=== PATIENT | male | born 1950 | race Caucasian/White ===

== ENCOUNTER 2024-10-21 16:13 | Inpatient (IN) | payer OTHER, MEDICARE ==
[~2024-10-21] VITALS: Ht 190.5 cm; Wt 122.2 kg
[2024-10-21 16:53] LABS: BASOPHILS ABSOLUTE AUTO 0.07 K/mm3 (0.00-0.23); BASOPHILS PERCENT AUTO 0 % (0-2); EOSINOPHILS ABSOLUTE AUTO 0.03 K/mm3 (0.00-0.68); EOSINOPHILS PERCENT AUTO 0 % (0-6); Hematocrit 42.4 % (37.0-53.0); Hemoglobin 14.8 g/dL (13.5-17.5); IMMATURE GRAN ABSOLUTE AUTO 0.24 K/mm3 (0.00-0.10); IMMATURE GRAN PERCENT AUTO 1 % (0-1); LYMPHOCYTES ABSOLUTE AUTO 0.69 K/mm3 (0.84-5.20); LYMPHOCYTES PERCENT AUTO 3 % (21-46); MONOCYTES ABSOLUTE AUTO 1.27 K/mm3 (0.16-1.47); MONOCYTES PERCENT AUTO 6 % (4-13); Mean Corpuscular HGB 32.2 pg (26.0-34.0); Mean Corpuscular HGB Conc 34.9 g/dL (31.5-36.5); Mean Corpuscular Volume 92 fL (80-100); Mean Platelet Volume 9.5 fL (9.1-12.4); NEUTROPHILS ABSOLUTE AUTO 20.58 K/mm3 (1.96-9.15); NEUTROPHILS PERCENT AUTO 90 % (41-73); Platelet Count 196 K/mm3 (150-400); RDW Coefficient Variation 12.8 % (11.7-14.2); RDW Standard Deviation 43.4 fL (35.1-46.3); White Blood Cell Count 22.88 K/mm3 (4.00-11.30)
[2024-10-21 17:06] LABS: Albumin, Blood 3.3 g/dL (3.4-5.0); Albumin/Globulin Ratio 0.9 (0.8-1.8); Bilirubin, Total 1.4 mg/dL (0.1-1.0); Bun/Creatinine Ratio 19.1 (12.0-20.0); Calcium, Blood 8.5 mg/dL (8.5-10.1); Creatinine, Blood 1.1 mg/dL (0.60-1.20); Globulin, Blood 3.6 g/dL (2.2-4.0); Potassium, Blood 3.4 mmol/L (3.5-5.5); Total Protein, Blood 6.9 g/dL (6.4-8.2)
[2024-10-21] MEDS ORDERED: Ketorolac Tromethamine 15mg Vial IV ONE (17:30)
[2024-10-21] MEDS ORDERED: CefTRIAXone Sodium 2,000 MG in NS 100 ML IV ONE (17:30)
[2024-10-21] MEDS ORDERED: Lactated Ringer's 1,000 ML IV ONE (17:30)
[2024-10-21 18:06] LABS: Source, Urine Voided
[2024-10-21 18:13] LABS: Appearance, Urine Clear (Clear); Bilirubin, Urine Neg (Neg); Blood, Urine 4+ (Neg); Glucose Qualitative, Urine 2+ (Neg); Ketones, Urine Neg (Neg); Leukocyte Esterase, Urine Neg (Neg); Nitrite, Urine Neg (Neg); Protein, Urine 3+ (Neg); Urobilinogen, Urine NORM (Normal)
[2024-10-21 18:18] LABS: Color, Urine Pale Yellow (P-Yellow)
[2024-10-21 18:23] LABS: Bacteria Rare /hpf; Red Blood Cells, Urine 0-2 /hpf (0-2); Squamous Epithelial Cells Rare /hpf (Few); White Blood Cells, Urine 0-2 /hpf (0-5)
[2024-10-21 18:32] LABS: Influenza A, PCR NEGATIVE (NEGATIVE); Influenza B, PCR NEGATIVE (NEGATIVE); Resp Syncytial Virus, PCR NEGATIVE (NEGATIVE); SARS-Cov-2 (COVID-19) PCR, MMC NEGATIVE (NEGATIVE)
[2024-10-21] MEDS ORDERED: Acetaminophen 325 MG TABLET PO PRN (20:25)
[2024-10-21] MEDS ORDERED: Magnesium Hydroxide Conc 10 ML UDC PO PRN (20:25)
[2024-10-21] MEDS ORDERED: Ondansetron 4 MG TAB PO PRN (20:25)
[2024-10-21] MEDS ORDERED: Ibuprofen 400 MG Tab PO PRN (20:25)
[2024-10-21] MEDS ORDERED: AMLO10 PO (20:28)
[2024-10-21] MEDS ORDERED: Potassium Chloride 20 MEQ TabCR PO ONE (21:00)
[2024-10-21] MEDS ORDERED: Lactobacil 2-S.Thermo-Bifido 1 1 Cap PO SCH (21:00)
[2024-10-21] MEDS ORDERED: Sennosides 8.6 MG Tab PO SCH (21:00)
--- NOTE | 2024-10-21 21:16 | NUR ---
TOOK REPORT FROM VISCERA WASHER @ [id number].
[2024-10-21 21:21] LABS: C-REACTIVE PROTEIN, EXT RANGE 2.12 mg/dL (0.000-0.300); Magnesium, Blood 1.7 mg/dL (1.6-2.4)
[2024-10-21 21:52] VITALS: BP 152/76
[2024-10-22 00:17] VITALS: BP 167/72
[2024-10-22 02:29] LABS: Adenovirus Not Detected (NOT DETECT); Bordetella pertussis Not Detected (NOT DETECT); Chlamydophila pneumoniae Not Detected (NOT DETECT); Coronavirus 229E Not Detected (NOT DETECT); Coronavirus HKU1 Not Detected (NOT DETECT); Coronavirus NL63 Not Detected (NOT DETECT); Coronavirus OC43 Not Detected (NOT DETECT); Human Metapneumovirus Not Detected (NOT DETECT); Human Rhinovirus/Enterovirus Not Detected (NOT DETECT); Influenza A/2009-H1 Not Detected (NOT DETECT); Influenza A/H1 Not Detected (NOT DETECT); Influenza A/H3 Not Detected (NOT DETECT); Influenza B Not Detected (NOT DETECT); Mycoplasma pneumoniae Not Detected (NOT DETECT); Parainfluenza Virus 1 Not Detected (NOT DETECT); Parainfluenza Virus 2 Not Detected (NOT DETECT); Parainfluenza Virus 3 Not Detected (NOT DETECT); Parainfluenza Virus 4 Not Detected (NOT DETECT); Respiratory Syncytial Virus Not Detected (NOT DETECT); SARS-Cov-2 (COVID-19), BioFire Not Detected (NOT DETECT)
[2024-10-22 04:47] VITALS: BP 163/83
[2024-10-22 04:57] LABS: BASOPHILS ABSOLUTE AUTO 0.06 K/mm3 (0.00-0.23); BASOPHILS PERCENT AUTO 0 % (0-2); EOSINOPHILS PERCENT AUTO 0 % (0-6); Hemoglobin 14.2 g/dL (13.5-17.5); IMMATURE GRAN ABSOLUTE AUTO 0.17 K/mm3 (0.00-0.10); IMMATURE GRAN PERCENT AUTO 1 % (0-1); LYMPHOCYTES ABSOLUTE AUTO 1.13 K/mm3 (0.84-5.20); LYMPHOCYTES PERCENT AUTO 4 % (21-46); MONOCYTES ABSOLUTE AUTO 1.36 K/mm3 (0.16-1.47); MONOCYTES PERCENT AUTO 5 % (4-13); Mean Corpuscular HGB 32.6 pg (26.0-34.0); Mean Corpuscular HGB Conc 35.5 g/dL (31.5-36.5); Mean Corpuscular Volume 92 fL (80-100); Mean Platelet Volume 9.5 fL (9.1-12.4); NEUTROPHILS ABSOLUTE AUTO 24.78 K/mm3 (1.96-9.15); NEUTROPHILS PERCENT AUTO 90 % (41-73); Platelet Count 189 K/mm3 (150-400); RDW Coefficient Variation 13.1 % (11.7-14.2); RDW Standard Deviation 43.6 fL (35.1-46.3); Red Blood Cell Count 4.36 M/mm3 (4.30-5.90)
--- NOTE | 2024-10-22 04:59 | NUR ---
SHIFT SUMMARY NOC PT A/O X 3. PLEASANT AND COOPERATIVE WITH CARE. VSS. ADMIT FROM ED WITH SIRS/AMS. RESPIRATORY PANEL NEGATIVE AND GI PANEL UNCOLLECTED. PT LACTIC WAS 2.9 AND AFTER ARRIVING ON UNIT TRENDING DOWN TO 2.3, REDRAW IN AM. PT ON TELE SINUS RHYTHM IN 80'S. PUREWICK IN PLACE FOR INCONTINENCE. POTASSIUM 3.4 WITH REPLACEMENT GIVEN IN ED. PT CURRENTLY RESTING WITH BED IN LOWEST POSITION, AND CALL LIGHT WITHIN REACH.
[2024-10-22] MEDS ORDERED: NS 250 ML IV PRN (05:15)
[2024-10-22 05:19] LABS: Albumin/Globulin Ratio 0.8 (0.8-1.8); Bilirubin, Total 1.4 mg/dL (0.1-1.0); Bun/Creatinine Ratio 17.7 (12.0-20.0); Calcium, Blood 8.3 mg/dL (8.5-10.1); Creatinine, Blood 0.9 mg/dL (0.60-1.20); Globulin, Blood 3.7 g/dL (2.2-4.0); Total Protein, Blood 6.7 g/dL (6.4-8.2)
--- NOTE | 2024-10-22 05:33 | NUR ---
AM LABS SHOWED INCREASED WBC 27.50 FROM 22.88. HOSPITALIST NOTIFIEND AND NO FURTHER INTERVENTIONS UNTIL GI PANEL COLLECTED. POTASSIUM 3.0 AND ORDER FOR KCL 40 MEQ ELIXER Q4H X 2 DOSES ORDERED. LACTIC ACID 1.2 WNL NOW.
[2024-10-22] MEDS ORDERED: Potassium Chloride 20 MEQ/15 ML UDC PO SCH (05:35)
[2024-10-22 07:31] VITALS: BP 153/79
[2024-10-22] MEDS ORDERED: Furosemide 10 MG/ML 4ML Vial IV SCH ×2 (09:00)
[2024-10-22] MEDS ORDERED: Enoxaparin 40 MG/0.4 ML SYR SC SCH (09:00)
[2024-10-22] MEDS ORDERED: AmLODIPine Besylate 5 MG Tab PO SCH (09:00)
[2024-10-22 09:33] LABS: Adenovirus F 40/41 Not Detected (NOT DETECT); Astrovirus Not Detected (NOT DETECT); Campylobacter Sp Not Detected (NOT DETECT); Cryptosporidium Not Detected (NOT DETECT); Cyclospora Cayetanensis Not Detected (NOT DETECT); E. Coli O157 Not Detected (NOT DETECT); Entamoeba Histolytica Not Detected (NOT DETECT); Enteroaggregative E. coli-EAEC Not Detected (NOT DETECT); Enteropathogenic E. coli-EPEC Not Detected (NOT DETECT); Enterotoxigenic E. coli-ETEC Not Detected (NOT DETECT); Giardia Lamblia Not Detected (NOT DETECT); Norovirus GI/GII Not Detected (NOT DETECT); Plesiomonas Shigelloides Not Detected (NOT DETECT); Rotavirus A Not Detected (NOT DETECT); Salmonella Sp Not Detected (NOT DETECT); Sapovirus Not Detected (NOT DETECT); Shiga Toxin-prod E. coli-STEC Not Detected (NOT DETECT); Shigella/Enteroin E. coli-EIEC Not Detected (NOT DETECT); Vibrio Cholerae Not Detected (NOT DETECT); Vibrio Sp Not Detected (NOT DETECT); Yersinia Enterocolitica Not Detected (NOT DETECT)
--- NOTE | 2024-10-22 14:35 | NUR ---
Pt. is awake in bed and welcomes my visit. Pt. is pleasant. Facilitated a life review and considered matters of katty and belief. Listen with empathy and a calming presence. Pt. displayed evidence of being engaged and aware. Pt. welcomed prayer. Prayed with Pt. Pt. vebralized gratitude for the spiritual care visit.
[2024-10-22 16:04] VITALS: BP 162/82
[2024-10-22] MEDS ORDERED: CefTRIAXone Sodium 1,000 MG in NS 100 ML IV SCH (18:00)
--- NOTE | 2024-10-22 19:21 | NUR ---
SHIFT SUMMARY PT A&OX4. PT ADMITTED DUE TO AMS. PT REPORTS NO PAIN. PT REPORTED SOME NAUSEA THIS AM BUT REPORTED NOT NEEDING MEDICATION AND TOLERATED MEALS. PT ON TELE, NO TELE REPORTS NOTED. MIKE AWARE OF INCREASE IN WBC. REPORTED TO MIKE PT MAY NEED NYSTATIN POWDER FOR GROIN, AWAITING NEW ORDER. REPORTED TO DR. MCKEON PT REPORTED BEING DIZZY. VSS. PT WORKED WITH PHYSICAL THERAPY TODAY. PT IS A ONE ASSIST WITH FWW. PT HAS PERWICK IN PLACE, AND ADEQUATELY SUCTIONING. PT IN BED, BED IN LOWEST POSITION, CALL LIGHT IN REACH. PT CALLS APPROPRIATE. PT REPORTS NO SOB. LET NIGHT RN KNOW PT WILL BE NPO AT MIDNIGHT FOR STRESS TEST. LAB REPORTED CH TROPONIN, NOTIFIED. PT HAD ECHO AND CT COMPLETED TODAY.
[2024-10-22 19:24] VITALS: BP 166/91
[2024-10-23 00:19] VITALS: BP 177/82
[2024-10-23 04:35] VITALS: BP 155/84
--- NOTE | 2024-10-23 05:05 | NUR ---
SHIFT SUMMARY: Pt is admitted for altered mental status and is a full code. Is alert and able to make needs known. ADLs have been SBA. denies pain or discomfort when asked. Telly reports sinus in the 80s with a 1 deg. Was NPO starting at midnight.
[2024-10-23 07:05] LABS: BASOPHILS ABSOLUTE AUTO 0.04 K/mm3 (0.00-0.23); BASOPHILS PERCENT AUTO 0 % (0-2); EOSINOPHILS ABSOLUTE AUTO 0.14 K/mm3 (0.00-0.68); EOSINOPHILS PERCENT AUTO 1 % (0-6); Hematocrit 42.6 % (37.0-53.0); Hemoglobin 14.6 g/dL (13.5-17.5); IMMATURE GRAN ABSOLUTE AUTO 0.04 K/mm3 (0.00-0.10); IMMATURE GRAN PERCENT AUTO 0 % (0-1); LYMPHOCYTES ABSOLUTE AUTO 1.77 K/mm3 (0.84-5.20); LYMPHOCYTES PERCENT AUTO 16 % (21-46); MONOCYTES ABSOLUTE AUTO 1.08 K/mm3 (0.16-1.47); MONOCYTES PERCENT AUTO 10 % (4-13); Mean Corpuscular HGB 32.1 pg (26.0-34.0); Mean Corpuscular HGB Conc 34.3 g/dL (31.5-36.5); Mean Corpuscular Volume 94 fL (80-100); Mean Platelet Volume 9.9 fL (9.1-12.4); NEUTROPHILS ABSOLUTE AUTO 8.22 K/mm3 (1.96-9.15); NEUTROPHILS PERCENT AUTO 73 % (41-73); Platelet Count 190 K/mm3 (150-400); RDW Coefficient Variation 12.9 % (11.7-14.2); RDW Standard Deviation 44.4 fL (35.1-46.3); Red Blood Cell Count 4.55 M/mm3 (4.30-5.90); White Blood Cell Count 11.29 K/mm3 (4.00-11.30)
[2024-10-23 07:21] VITALS: BP 165/95
[2024-10-23 07:54] LABS: Albumin, Blood 3.1 g/dL (3.4-5.0); Albumin/Globulin Ratio 0.8 (0.8-1.8); Bilirubin, Total 1.2 mg/dL (0.1-1.0); Bun/Creatinine Ratio 16.5 (12.0-20.0); Calcium, Blood 8.5 mg/dL (8.5-10.1); Creatinine, Blood 0.97 mg/dL (0.60-1.20); Globulin, Blood 4.1 g/dL (2.2-4.0); Magnesium, Blood 2.2 mg/dL (1.6-2.4); Phosphorus, Blood 1.7 mg/dL (2.5-4.9); Potassium, Blood 2.9 mmol/L (3.5-5.5); Total Protein, Blood 7.2 g/dL (6.4-8.2)
[2024-10-23] MEDS ORDERED: Aminophylline 250MG / 10ML 10 ML Vial ONE (08:24)
[2024-10-23] MEDS ORDERED: Regadenoson 0.4 MG/5 ML SYRINGE ONE (08:24)
[2024-10-23] MEDS ORDERED: Potassium Phosphate Dibasic 30 MM in Dextrose 5% 500 ML IV STA (09:06)
[2024-10-23] MEDS ORDERED: Potassium Chloride 20 MEQ TabCR PO SCH (09:10)
[2024-10-23 14:21] VITALS: BP 175/91
--- NOTE | 2024-10-23 17:20 | NUR ---
NO ACUTE CHANGES THIS SHIFT. PT IS ALERT AND ORIENTED X4, CALLS APPROPRIATELY. SECOND PART OF STRESS TEST TOMORROW AND PLAN FOR D/C PENDING RESULTS. SBA TO BATHROOM. ONE EPISODE OF DIZZINESS WITH AMBULATION.
[2024-10-23 19:27] VITALS: BP 166/84
[2024-10-24] VITALS (8 sets, daily range): BP systolic 136–171; BP diastolic 76–99
--- NOTE | 2024-10-24 04:28 | NUR ---
SHIFT SUMMARY: Pt is admitted for altered mental status and is a full code. Is alert and able to make needs known. ADLs have been SBA. denies pain or discomfort when asked. Telly reports sinus in the 70s with a bundle branch. Was NPO starting at midnight.
[2024-10-24 06:53] LABS: BASOPHILS ABSOLUTE AUTO 0.03 K/mm3 (0.00-0.23); BASOPHILS PERCENT AUTO 0 % (0-2); EOSINOPHILS ABSOLUTE AUTO 0.22 K/mm3 (0.00-0.68); EOSINOPHILS PERCENT AUTO 2 % (0-6); Hematocrit 44.5 % (37.0-53.0); Hemoglobin 15.6 g/dL (13.5-17.5); IMMATURE GRAN ABSOLUTE AUTO 0.04 K/mm3 (0.00-0.10); IMMATURE GRAN PERCENT AUTO 0 % (0-1); LYMPHOCYTES ABSOLUTE AUTO 1.93 K/mm3 (0.84-5.20); LYMPHOCYTES PERCENT AUTO 21 % (21-46); MONOCYTES ABSOLUTE AUTO 0.82 K/mm3 (0.16-1.47); MONOCYTES PERCENT AUTO 9 % (4-13); Mean Corpuscular HGB 32.4 pg (26.0-34.0); Mean Corpuscular HGB Conc 35.1 g/dL (31.5-36.5); Mean Corpuscular Volume 92 fL (80-100); Mean Platelet Volume 10.2 fL (9.1-12.4); NEUTROPHILS ABSOLUTE AUTO 5.99 K/mm3 (1.96-9.15); NEUTROPHILS PERCENT AUTO 66 % (41-73); Platelet Count 218 K/mm3 (150-400); RDW Coefficient Variation 12.7 % (11.7-14.2); RDW Standard Deviation 43.2 fL (35.1-46.3); Red Blood Cell Count 4.82 M/mm3 (4.30-5.90); White Blood Cell Count 9.03 K/mm3 (4.00-11.30)
[2024-10-24 07:18] LABS: Magnesium, Blood 2.2 mg/dL (1.6-2.4)
[2024-10-24 07:19] LABS: Albumin, Blood 3.2 g/dL (3.4-5.0); Albumin/Globulin Ratio 0.7 (0.8-1.8); Bilirubin, Total 1.3 mg/dL (0.1-1.0); Bun/Creatinine Ratio 18.3 (12.0-20.0); Creatinine, Blood 0.98 mg/dL (0.60-1.20); Globulin, Blood 4.3 g/dL (2.2-4.0); Phosphorus, Blood 2.2 mg/dL (2.5-4.9); Total Protein, Blood 7.5 g/dL (6.4-8.2)
[2024-10-24] MEDS ORDERED: Potassium Phosphate Dibasic 15 MM in Dextrose 5% 250 ML IV ONE ×2 (08:55→14:00)
[2024-10-24] MEDS ORDERED: Potassium Chloride 40 MEQ in NS 250 ML IV ONE (08:55)
[2024-10-24] MEDS ORDERED: Lisinopril 10 MG Tab PO SCH (09:00)
--- NOTE | 2024-10-24 17:42 | NUR ---
SHIFT SUMMARY: PATIENT A/OX4, PLEASANT AND COOPERATIVE c CARE. PATIENT DENIES CP/PRESSURE, SOB, N/V AND DIZZINESS. PATIENT ON TELE, SR HR IN THE 70'S BPM. PATIENT HAD HIS 2ND PART OF STRESS TEST DONE TODAY c RESULT AVAILABLE FOR REVIEW. PATIENT AM LAB RESULT OF PHOS 2.2 AND POTASSIUM 3.0. PATIENT RECEIVED OT DOSE IV POTASSIUM CHLORIDE AND POTASSIUM PHOSPHATE PER ORDER AND REPEAT LAB IN AM. PATIENT EDEMA TO BLE'S HAS SIGNIFICANTLY IMPROVED. PATIENT HAS GREAT APPETITE, CONTINENT OF BAB, AMBULATES TO BATHROOM INDEPENDENTLY. VITAL SIGNS REVIEWED. CALL LIGHT IN REACH.
[2024-10-25 05:06] VITALS: BP 140/72
[2024-10-25 06:55] LABS: BASOPHILS ABSOLUTE AUTO 0.06 K/mm3 (0.00-0.23); BASOPHILS PERCENT AUTO 1 % (0-2); EOSINOPHILS ABSOLUTE AUTO 0.33 K/mm3 (0.00-0.68); EOSINOPHILS PERCENT AUTO 4 % (0-6); Hematocrit 42.7 % (37.0-53.0); Hemoglobin 14.7 g/dL (13.5-17.5); IMMATURE GRAN ABSOLUTE AUTO 0.05 K/mm3 (0.00-0.10); IMMATURE GRAN PERCENT AUTO 1 % (0-1); LYMPHOCYTES PERCENT AUTO 29 % (21-46); MONOCYTES ABSOLUTE AUTO 0.91 K/mm3 (0.16-1.47); MONOCYTES PERCENT AUTO 10 % (4-13); Mean Corpuscular HGB Conc 34.4 g/dL (31.5-36.5); Mean Corpuscular Volume 93 fL (80-100); Mean Platelet Volume 9.8 fL (9.1-12.4); NEUTROPHILS ABSOLUTE AUTO 5.41 K/mm3 (1.96-9.15); NEUTROPHILS PERCENT AUTO 57 % (41-73); Platelet Count 246 K/mm3 (150-400); RDW Coefficient Variation 12.7 % (11.7-14.2); RDW Standard Deviation 43.6 fL (35.1-46.3); Red Blood Cell Count 4.59 M/mm3 (4.30-5.90); White Blood Cell Count 9.56 K/mm3 (4.00-11.30)
[2024-10-25 07:07] LABS: Magnesium, Blood 2.3 mg/dL (1.6-2.4)
[2024-10-25 07:08] LABS: Albumin, Blood 3.1 g/dL (3.4-5.0); Anion Gap 11 mmol/L (3-11); Blood Urea Nitrogen 28 mg/dL (8-24); Bun/Creatinine Ratio 22.4 (12.0-20.0); CO2, Blood 27 mmol/L (21-32); Calcium, Blood 8.2 mg/dL (8.5-10.1); Chloride, Blood 103 mmol/L (98-108); Creatinine, Blood 1.25 mg/dL (0.60-1.20); Glomerular Filtration Rate 61 (60-); Glucose, Blood 143 mg/dL (70-99); Phosphorus, Blood 2.8 mg/dL (2.5-4.9); Potassium, Blood 3.2 mmol/L (3.5-5.5); Sodium, Blood 138 mmol/L (136-145)
[2024-10-25 08:10] VITALS: BP 153/79
[2024-10-25] MEDS ORDERED: Potassium Chloride 10 Meq Tablet SA PO ONE (08:55)
[2024-10-25] MEDS ORDERED: Spironolactone 25 MG Tab PO SCH (09:00)
[2024-10-25] MEDS ORDERED: LISI20 PO (13:15)
[2024-10-25] MEDS ORDERED: ALDACTONE25 MG PO (13:15)
--- NOTE | 2024-10-25 13:45 | NUR ---
DISCHARGE PT DISCHARGED AT 1345. PT, AND SON EDUCATED ON NEW MEDICATIONS, APPOINTMENTS NEEDED, AND FOLLOW UP LABS. NO FURTHER QUESTIONS AT TIME OF EDUCATION. IVS REMOVED & INTACT. PT WHEELED OUT BY AIDE & DRIVEN HOME BY SON.
== END 2024-10-25 13:47 | disposition home health service (06) | DRG 91 ==
LOC: ER 16:13 → MEDS 16:14
PROVIDERS: Emergency Medicine; Family Medicine; Hospitalist; Student in an Organized Health Care Education/Training Program; ADMIT Student in an Organized Health Care Education/Training Program
DX: G92.8 Other toxic encephalopathy (principal); I21.4 Non-ST elevation (NSTEMI) myocardial infarction; E87.21 Acute metabolic acidosis; R65.10 Systemic inflammatory response syndrome (SIRS) of non-infectious origin without acute organ dysfunction; R74.01 Elevation of levels of liver transaminase levels; I10 Essential (primary) hypertension; E83.39 Other disorders of phosphorus metabolism; E87.6 Hypokalemia; E66.3 Overweight; Z79.899 Other long term (current) drug therapy; Z90.49 Acquired absence of other specified parts of digestive tract
CPT/HCPCS: 0202U; 0241U; 36415; 70450; 71046; 78452; 80053; 80069; 81001; 82947; 83605; 83735; 83880; 84100; 84443; 84484; 85025; 86140; 87040; 87507; 93005; 93010; 93017; 93306; 96365; 96372; 96375; 97110; 97116; 97161; 97165; 97530; 99285-25; A6590; A9270; A9500; G0378; J0280; J0696; J1650; J1885; J1940; J2785; J3480; J7050; J7060; J7120

== ENCOUNTER → 2024-10-26 | Outpatient (CLI) | payer MEDICARE ==
[~2024-10-26] MED LIST: ALDACTONE25 MG PO; AMLO10 PO; LISI20 PO
[2024-10-26 19:28] LABS: Bun/Creatinine Ratio 27.3 (12.0-20.0); Calcium, Blood 9.1 mg/dL (8.5-10.1); Creatinine, Blood 1.32 mg/dL (0.60-1.20); Potassium, Blood 3.6 mmol/L (3.5-5.5)
== END | disposition home or self-care (01) ==
LOC: LAB SHORT 18:50 → LAB 18:50
PROVIDERS: Nurse Practitioner Family
DX: E87.6 Hypokalemia (principal)
CPT/HCPCS: 80048

== ENCOUNTER 2025-02-28 10:01 | Inpatient (IN) | payer OTHER ==
[~2025-02-28] VITALS: Ht 188 cm; Wt 105.0 kg
[2025-02-28] VITALS (16 sets, daily range): BP systolic 101–144; BP diastolic 39–95
[~2025-02-28 10:01] MED LIST changes: +ACET500 PO; +ATOR40TA PO; +Aspir 8181 MG PO; +CLOP75 PO; +METO25ER PO
[2025-02-28] MEDS ORDERED: NS 1,000 ML IV ONE (10:18)
[2025-02-28 10:43] LABS: pH Blood Venous 7.03 (7.34-7.37)
[2025-02-28 10:49] LABS: BASOPHILS ABSOLUTE AUTO 0.04 K/mm3 (0.00-0.23); BASOPHILS PERCENT AUTO 0 % (0-2); EOSINOPHILS ABSOLUTE AUTO 0.14 K/mm3 (0.00-0.68); EOSINOPHILS PERCENT AUTO 1 % (0-6); Hematocrit 41.1 % (37.0-53.0); Hemoglobin 12.7 g/dL (13.5-17.5); IMMATURE GRAN ABSOLUTE AUTO 0.04 K/mm3 (0.00-0.10); IMMATURE GRAN PERCENT AUTO 0 % (0-1); LYMPHOCYTES ABSOLUTE AUTO 2.67 K/mm3 (0.84-5.20); LYMPHOCYTES PERCENT AUTO 20 % (21-46); MONOCYTES ABSOLUTE AUTO 0.92 K/mm3 (0.16-1.47); MONOCYTES PERCENT AUTO 7 % (4-13); Mean Corpuscular HGB Conc 30.9 g/dL (31.5-36.5); Mean Corpuscular Volume 102 fL (80-100); NEUTROPHILS ABSOLUTE AUTO 9.67 K/mm3 (1.96-9.15); NEUTROPHILS PERCENT AUTO 72 % (41-73); NRBC ABSOLUTE 0.00 K/mm3 (0.00-0.02); NRBC Auto 0.0 /100 WBC (0.0-0.2); Platelet Count 163 K/mm3 (150-400); RDW Coefficient Variation 14.2 % (11.7-14.2); RDW Standard Deviation 54.0 fL (35.1-46.3)
[2025-02-28] MEDS ORDERED: Insulin Regular 100 Unit/ML 1ML Dose IV ONE (11:00)
[2025-02-28] MEDS ORDERED: Sodium Bicarb 8.4% 1 MEQ/ML 50 ML Vial IV ONE ×3 (11:00→20:35)
[2025-02-28] MEDS ORDERED: Calcium Gluconate 10% 100 MG/ML INJ IV ONE (11:00)
[2025-02-28] MEDS ORDERED: Albuterol 2.5 MG/3 ML VIAL INH SCH (11:00)
[2025-02-28 11:10] LABS: Ethanol (Alcohol), Blood, Med <3 mg/dL
[2025-02-28 11:12] LABS: Calcium, Ionized (POC) 1.21 mmol/L (1.10-1.46); Chloride (POC) 126 mmol/L (98-108); Creatinine (POC) 8.8 mg/dL (0.8-1.3); Glucose (ISTAT POC) 106 mg/dL (70-99); Hematocrit (POC) 37.0 % (41.0-53.0); Hemoglobin (POC) 12.6 g/dL (13.5-17.5); Potassium (POC) 8.4 mmol/L (3.5-5.5); Sodium (POC) 140 mmol/L (135-148); Total CO2 (POC) 8 mmol/L (21-32)
[2025-02-28 11:15] LABS: Alanine Aminotransfer (ALT/SGP 57 U/L (12-78); Albumin, Blood 3.4 g/dL (3.4-5.0); Albumin/Globulin Ratio 0.8 (0.8-1.8); Anion Gap 19 mmol/L (3-11); Aspartate Aminotrans (AST/SGOT 21 U/L (12-37); Bilirubin, Total 0.4 mg/dL (0.1-1.0); Blood Urea Nitrogen 181 mg/dL (8-24); CO2, Blood 5 mmol/L (21-32); Calcium, Blood 9.0 mg/dL (8.5-10.1); Chloride, Blood 122 mmol/L (98-108); Creatinine, Blood 8.43 mg/dL (0.60-1.20); Globulin, Blood 4.0 g/dL (2.2-4.0); Glucose, Blood 105 mg/dL (70-99); Potassium, Blood 8.5 mmol/L (3.5-5.5); Sodium, Blood 137 mmol/L (136-145); Total Protein, Blood 7.4 g/dL (6.4-8.2)
[2025-02-28 11:23] LABS: Influenza A, PCR NEGATIVE (NEGATIVE); Influenza B, PCR NEGATIVE (NEGATIVE); Resp Syncytial Virus, PCR NEGATIVE (NEGATIVE); SARS-Cov-2 (COVID-19) PCR, MMC NEGATIVE (NEGATIVE)
[2025-02-28] MEDS ORDERED: CALCIUM GLUC IN NACL, ISO-OSM 50 ML IV ONE (11:25)
[2025-02-28] MEDS ORDERED: Ondansetron HCl 2 MG / ML 2ML Vial IV PRN (11:50)
[2025-02-28] MEDS ORDERED: Darbepoetin (Pharmacy Consult) SC SCH (11:55)
[2025-02-28 12:05] LABS: Source, Urine Clean Catch
[2025-02-28] MEDS ORDERED: Sodium Bicarb 8.4% Inj 150 MEQ in Dextrose 5% 1,000 ML IV SCH (12:05)
[2025-02-28 12:08] LABS: Bilirubin, Urine Neg (Neg); Color, Urine Yellow (P-Yellow); Glucose Qualitative, Urine Neg (Neg); Ketones, Urine Neg (Neg); Leukocyte Esterase, Urine Neg (Neg); Protein, Urine 2+ (Neg); Specific Gravity, Urine 1.025 (1.003-1.022); Urobilinogen, Urine NORM (Normal)
[2025-02-28 12:14] LABS: White Blood Cells, Urine 0-2 /hpf (0-5)
[2025-02-28] MEDS ORDERED: SPIRONOLACTONE25 MG PO (13:58)
[2025-02-28] MEDS ORDERED: LISI20 PO (13:58)
[2025-02-28] MEDS ORDERED: ATOR10 PO (14:00)
[2025-02-28] MEDS ORDERED: Heparin Sodium,Porcine 5,000 UNIT/0.5 ML SDV SC SCH (14:00)
[2025-02-28 14:34] LABS: Anion Gap 17.0 mmol/L (3-11); Blood Urea Nitrogen 177.0 mg/dL (8-24); Calcium, Blood 8.7 mg/dL (8.5-10.1); Chloride, Blood 123.0 mmol/L (98-108); Creatinine, Blood 8.23 mg/dL (0.60-1.20); Glucose, Blood 144.0 mg/dL (70-99); Sodium, Blood 142.0 mmol/L (136-145)
[2025-02-28 14:35] LABS: CO2, Blood 8.0 mmol/L (21-32); Potassium, Blood 6.2 mmol/L (3.5-5.5)
[2025-02-28 17:10] LABS: pH Blood Venous 7.12 (7.34-7.37)
[2025-02-28 17:43] LABS: Anion Gap 14.0 mmol/L (3-11); Blood Urea Nitrogen 178.0 mg/dL (8-24); CO2, Blood 11.0 mmol/L (21-32); Calcium, Blood 8.6 mg/dL (8.5-10.1); Chloride, Blood 122.0 mmol/L (98-108); Creatinine, Blood 8.05 mg/dL (0.60-1.20); Glucose, Blood 174.0 mg/dL (70-99); Potassium, Blood 5.9 mmol/L (3.5-5.5); Sodium, Blood 141.0 mmol/L (136-145)
--- NOTE | 2025-02-28 18:27 | NUR ---
ASSUMPTION OF CARE RECEIVED REPORT FROM CLARISSA Mccauley RN AT BEDSIDE. PT ORIENTED TO SELF AND PLACE, ABLE TO MOVE EXTREMITIES WEAKLY WHEN PROMPTED, PUPILS PERRL. SATURATING >95% ON RA, LUNG SOUNDS DIM T/I WEISS. BREATHS UNLABORED AND EVEN. OCCASIONAL PRODUCTIVE COUGH W/ SMALL AMOUTN OF CLEAR/WHITE SPUTUM. NSR ON MONITOR, CAP REFILL<3SEC, NO NOTED EDEMA. ABD SOFT AND NONTENDER, BOWEL SOUNDS PRESENT IN ALL QUADRANTS. BROWN CATHETER IN PLACE DRAINING CLEAR YELLOW URINE TO GRAVITY. SKIN W/ SCATTERED BRUISING AND W/O BREAKDOWN. ACCESS: BILATERAL UE PIV, LLE PIV GTTS: D5 BICARB @150ML/HR
[2025-02-28 20:07] LABS: Anion Gap 14.0 mmol/L (3-11); Blood Urea Nitrogen 170.0 mg/dL (8-24); CO2, Blood 13.0 mmol/L (21-32); Calcium, Blood 8.6 mg/dL (8.5-10.1); Chloride, Blood 121.0 mmol/L (98-108); Creatinine, Blood 7.62 mg/dL (0.60-1.20); Glucose, Blood 189.0 mg/dL (70-99); Potassium, Blood 5.8 mmol/L (3.5-5.5); Sodium, Blood 142.0 mmol/L (136-145)
[2025-03-01] VITALS (24 sets, daily range): BP systolic 89–162; BP diastolic 43–136
[2025-03-01 04:07] LABS: Hematocrit 30.8 % (37.0-53.0); Hemoglobin 10.2 g/dL (13.5-17.5)
[2025-03-01 04:34] LABS: Magnesium, Blood 2.6 mg/dL (1.6-2.4); Prostate Specific Antigen 2.660 ng/mL (0.000-4.000)
[2025-03-01 04:38] LABS: Albumin, Blood 2.7 g/dL (3.4-5.0); Anion Gap 13 mmol/L (3-11); Blood Urea Nitrogen 171 mg/dL (8-24); CO2, Blood 19 mmol/L (21-32); Calcium, Blood 8.2 mg/dL (8.5-10.1); Chloride, Blood 119 mmol/L (98-108); Creatinine, Blood 6.43 mg/dL (0.60-1.20); Glucose, Blood 164 mg/dL (70-99); Phosphorus, Blood 4.9 mg/dL (2.5-4.9); Potassium, Blood 4.8 mmol/L (3.5-5.5); Sodium, Blood 146 mmol/L (136-145)
[2025-03-01 06:09] LABS: Campylobacter Sp Not Detected (NOT DETECT); E. Coli O157 Not Detected (NOT DETECT); Enteroaggregative E. coli-EAEC Not Detected (NOT DETECT); Enteropathogenic E. coli-EPEC Not Detected (NOT DETECT); Enterotoxigenic E. coli-ETEC Not Detected (NOT DETECT); Salmonella Sp Not Detected (NOT DETECT); Shiga Toxin-prod E. coli-STEC Not Detected (NOT DETECT); Shigella/Enteroin E. coli-EIEC Not Detected (NOT DETECT); Vibrio Sp Not Detected (NOT DETECT)
--- NOTE | 2025-03-01 11:30 | NUR ---
Updated Dr Tomlin via phone on sodium levels, ask if petersen can be D/C'd, per MD keep petersen one more day to monitor progression.
--- NOTE | 2025-03-01 17:19 | NUR ---
Spiritual Care Visit. Pt. is awake when he welcomes my visit. Pt. is pleasant and displays initial evidence of being alert. Asked some family and katty diagnostic questions to the Pt. and listen with emapthy and a calming presence. Considered some general matters about katty and belief. Prayed for the Pt. Pt. verbalized gratitude for the spiritual care visit and welcomed this freight booker to return.
[2025-03-02] VITALS (13 sets, daily range): BP systolic 108–151; BP diastolic 49–89
[2025-03-02 03:33] LABS: Hematocrit 34.5 % (37.0-53.0); Hemoglobin 11.6 g/dL (13.5-17.5)
[2025-03-02 04:00] LABS: Albumin, Blood 3.1 g/dL (3.4-5.0); Anion Gap 13 mmol/L (3-11); Blood Urea Nitrogen 145 mg/dL (8-24); CO2, Blood 18 mmol/L (21-32); Calcium, Blood 8.3 mg/dL (8.5-10.1); Chloride, Blood 121 mmol/L (98-108); Creatinine, Blood 4.34 mg/dL (0.60-1.20); Glucose, Blood 111 mg/dL (70-99); Magnesium, Blood 2.5 mg/dL (1.6-2.4); Phosphorus, Blood 4.2 mg/dL (2.5-4.9); Potassium, Blood 5.5 mmol/L (3.5-5.5); Sodium, Blood 146 mmol/L (136-145)
--- NOTE | 2025-03-02 05:30 | NUR ---
PT UPDATE: REPORT GIVEN TO HIGINIO PEN RULER OPERATOR WHO WILL ASSUME CARE OF PT ONCE PT IS TRANSFERRED TO PCU.
--- NOTE | 2025-03-02 05:45 | NUR ---
PT UPDATE: PT TRANSFERRED TO PCU VIA HOSPITAL BED. PT ACCOMPANIED BY HIGINIO UMANA AND FRANKIE UMANA. ALL BELONGINGS SENT W/PT.
[2025-03-02] MEDS ORDERED: Sodium Bicarb 8.4% Inj 50 MEQ in Dextrose 5% 1,000 ML IV SCH (06:00)
--- NOTE | 2025-03-02 06:19 | NUR ---
TRANSFER NOTE PT TRANSFERRED TO PCU 7 AT 0550. PT A&O X3. KNOWS HE IS IN THE HOSPITAL BUT UNSURE WHY, UNSURE OF SPECIFIC DATE BUT KNOWS YEAR. SLOW TO RESPOND AT TIMES. EQUAL STRENGTH. WEAKNESS NOTED T/O. PT WITH FULL BED CHANGE AFTER INCONTINENT BM PRIOR TO TRANSFER. BP STABLE. SR ON MONITOR. PREVIOUS TRANSPORTATION ASSISTANT EARLENE STATED TO THIS RN THAT PATIENT HAS KNOWN "RESIDUAL ST ELEVATION" AND STATES THAT THE MD IS AWARE. THIS RN DOES NOT NOTE ANY ST ELEVATION ON TELE BUT WILL PASS ALONG TO DAYSHIFT RN. OTHERWISE SR WITH HR 70-80'S. ON RA WITH SPO2 >92%. DENIES CHEST PAIN/PRESSURE AND SOB. REPOSITIONED WITH PILLOWS UPON ARRIVAL. PT REMAINS NPO AFTER FAILED SWALLOW EVAL YESTERDAY. BROWN CATHETER PATENT AND DRAINING TO GRAVITY. BASELINE TREMOR NOTED. BED IN LOWEST POSITION AND CALL LIGHT WITHIN REACH. THIS RN WILL REPORT TO ONCOMING DAYSHIFT RN.
[2025-03-02 12:21] LABS: Albumin, Blood 3.0 g/dL (3.4-5.0); Anion Gap 9 mmol/L (3-11); Blood Urea Nitrogen 149 mg/dL (8-24); CO2, Blood 18 mmol/L (21-32); Calcium, Blood 8.3 mg/dL (8.5-10.1); Chloride, Blood 123 mmol/L (98-108); Creatinine, Blood 3.37 mg/dL (0.60-1.20); Glucose, Blood 188 mg/dL (70-99); Phosphorus, Blood 4.1 mg/dL (2.5-4.9); Potassium, Blood 5.3 mmol/L (3.5-5.5); Sodium, Blood 145 mmol/L (136-145)
--- NOTE | 2025-03-02 17:59 | NUR ---
SHIFT SUMMARY PT A&Ox3, FORGETFUL AND POOR HISTORIAN, WITHDRAWN BUT COMMUNICATES NEEDS. DOES NOT USE CALL LIGHT TO INITIATE CARE BUT DOES NOT SET OFF BED ALARM. BP STABLE, SINUS 80's, DENIES CP/PRESSURE. SpO2> 92% RA, DENIES SOB. PT UNABLE TO WORK MUCH WITH THERAPY D/T NAUSEA AND WEAKNESS. AFTER REPOSITIONING PT THIS EVENING, PT BECAME VERY NAUSEOUS AND HAD SMALL AMOUNT OF GREEN EMESIS. PT WITH VERY LIQUID, CLEAR/PINK/ORANGE BM. THIS RN NOTIFIED PROVIDER, ORDERS PLACED FOR ABDOMINAL CT. NO C/P PAIN. PT MILDLY MORE CONFUSED THIS EVENING, PARANOID ABOUT IV ZOFRAN AND REFUSED ADMINISTRATION DESPITE EDUCATION AND REASSURANCE. NO OTHER EVENTS, WILL REPORT TO ONCOMING RN.
--- NOTE | 2025-03-02 22:28 | NUR ---
TRANSFER NOTE THIS RN ASSUMED CARE OF PATIENT AT 1900. PT A&O X1-2. PARANOID ABOUT GETTING NOC MEDS, REFUSED. ANSWERING SOME QUESTIONS BUT STAYING SILENT FOR OTHER QUESTIONS. OTHERWISE PT HAS BEEN CALM AND COOPERATIVE WITH CARE. SR ON MONITOR. BP STABLE. AFEBRILE. ON RA WITH SPO2 >92%. INTERMITTENT NAUSEA. REFUSING ANTINAUSEA MEDICATION. ASSISTING WITH REPOSITIONING Q2HRS. BICARB GTT INFUSING PER EMAR. NO BM THIS SHIFT. BROWN CATHETER PATENT AND DRAINING TO GRAVITY. PT TO CT AROUND 2200. THIS RN GAVE REPORT TO JODY UMANA ON MEDICAL FLOOR. PT TRANSFERRED TO [facility].
--- NOTE | 2025-03-02 22:44 | NUR ---
PATIENT TRANSFER FROM [facility] 07. REPORT TAKEN FROM Chance UMANA AND BEDS EXCHANGED. BICARB INFUSING @ 75mL/HR. PERSONAL BELONGINGS WITH PATIENT. RESTING IN BED. NO CONCERNS. WCBARBIE.
[2025-03-03] VITALS (8 sets, daily range): BP systolic 110–157; BP diastolic 59–103
--- NOTE | 2025-03-03 03:55 | NUR ---
SHIFT SUMMARY PATIENT PCU TRANSFER HAD NO ACUTE CHANGES. ALERT TO SELF WITH CONFUSION. BEDREST. NO S/SX OF PAIN AND SOB. VSS/AFEBRILE. POWERGLIDE LELO AND PIV INTACT. BICARB INFUSING @ 75mL/HR. TELE MONITOR NSR 75. BASELINE BUE TREMORS. BROWN PATENT AND DRAINING CLEAR YELLOW URINE FOR RETENTION. CALL LIGHT IN REACH. BED IN LOWEST POSITION. WILL CONTINUE TO MONITOR UNTIL DAY SHIFT NURSE ASSUMES CARE.
--- NOTE | 2025-03-03 04:02 | NUR ---
CASINO RUNNER REPORTS PATIENT DAPHNEY TO 30'S AND BACK TO NSR 80'S. PATIENT EYES OPEN RESTING IN BED. TM.
[2025-03-03 05:21] LABS: Hematocrit 30.5 % (37.0-53.0); Hemoglobin 10.1 g/dL (13.5-17.5)
[2025-03-03 06:12] LABS: Albumin, Blood 3.0 g/dL (3.4-5.0); Anion Gap 12 mmol/L (3-11); Blood Urea Nitrogen 131 mg/dL (8-24); CO2, Blood 20 mmol/L (21-32); Calcium, Blood 8.3 mg/dL (8.5-10.1); Chloride, Blood 119 mmol/L (98-108); Creatinine, Blood 3.54 mg/dL (0.60-1.20); Glucose, Blood 152 mg/dL (70-99); Magnesium, Blood 2.3 mg/dL (1.6-2.4); Phosphorus, Blood 3.6 mg/dL (2.5-4.9); Potassium, Blood 4.8 mmol/L (3.5-5.5); Sodium, Blood 146 mmol/L (136-145)
[2025-03-03 12:29] LABS: Albumin, Blood 2.9 g/dL (3.4-5.0); Anion Gap 11 mmol/L (3-11); Blood Urea Nitrogen 127 mg/dL (8-24); CO2, Blood 21 mmol/L (21-32); Calcium, Blood 8.1 mg/dL (8.5-10.1); Chloride, Blood 118 mmol/L (98-108); Creatinine, Blood 3.11 mg/dL (0.60-1.20); Glucose, Blood 146 mg/dL (70-99); Phosphorus, Blood 2.7 mg/dL (2.5-4.9); Potassium, Blood 4.7 mmol/L (3.5-5.5); Sodium, Blood 145 mmol/L (136-145)
--- NOTE | 2025-03-03 13:12 | NUR ---
NOTIFIED OF REPEAT LAB RESULTS. PER YANIRA CHANGE BICARB RATE TO 50ML/HR
--- NOTE | 2025-03-03 16:30 | NUR ---
SHIFT SUMMARY: PATIENT A&OX4/1 PERSON ASSIST WITH FWW, PATIENT ABLE TO AMBULATE TO THE RESTROOM WITH ASSISTANCE. BROWN IN PLACE, BICARB GOING AT 50ML/HR, EATING AND DRINKING OKAY. FLUID INTAKE IS BETTER THAT FOOD INTAKE AT THIS TIME. MILD THICK LIQUIDS AND PUREE DIET. PATIENT IN BED, WATCHING TV, CALL LIGHT WITHIN REACH, BED ALARM ON, NO SIGNS OR SYMPTOMS OF DISTRESS, PLAN IS SNF, PLAN OF CARE ONGOING.
--- NOTE | 2025-03-04 03:11 | NUR ---
SHIFT SUMMARY NO ACUTE EVENTS DURING THIS SHIFT. PT IS A/O X3-4, SLOW RESPONSES. ABLE TO MAKE HIS NEEDS KNOWN AND COOPERATIVE WITH CARE. SODIUM BICARB INFUSING ORDERED. PT DENIES PAIN AND DISCOMFORT DURING THIS SHIFT. HS MEDS CRUSHED IN APPLE SAUCE. VSS. ACUTE BROWN DRAINING TO GRAVITY, YELLOW COLOR URINE. NO REPORTS OF BM DURING THIS SHIFT. TELE: SR @66. PT DENIES CP/PRESSURE. BED AT THE LOWEST POSITION, CALL LIGHT W/I REACH. REPOSITIONED IN BED T/O THE NIGHT.
[2025-03-04 04:42] VITALS: BP 114/62
[2025-03-04 07:22] VITALS: BP 123/71
[2025-03-04 07:30] LABS: Albumin, Blood 2.9 g/dL (3.4-5.0); Anion Gap 8 mmol/L (3-11); Blood Urea Nitrogen 100 mg/dL (8-24); CO2, Blood 24 mmol/L (21-32); Calcium, Blood 8.1 mg/dL (8.5-10.1); Chloride, Blood 116 mmol/L (98-108); Creatinine, Blood 2.73 mg/dL (0.60-1.20); Glucose, Blood 101 mg/dL (70-99); Magnesium, Blood 2.2 mg/dL (1.6-2.4); Phosphorus, Blood 2.6 mg/dL (2.5-4.9); Potassium, Blood 4.9 mmol/L (3.5-5.5); Sodium, Blood 143 mmol/L (136-145)
[2025-03-04] MEDS ORDERED: NS 1,000 ML IV SCH (11:05)
[2025-03-04 14:38] VITALS: BP 111/64
--- NOTE | 2025-03-04 17:32 | NUR ---
End of shift summary: Patient is alert and oriented x3 with occasional forgetful moments noted; pleasant and cooperative with care. Patient denied SOB, CP/pressure, N/V/D or pain today. All medications administered per EMAR. New diet order and medication administration precaution order placed; 1-2 medications at a time with water. No acute changes this shift. Patient utilizes call light appropriately; call light within reach and bed in lowest position. Will continue to monitor until next shift nurse arrives and report is given.
[2025-03-04 19:17] VITALS: BP 116/70
[2025-03-04 23:44] VITALS: BP 113/63
--- NOTE | 2025-03-05 03:04 | NUR ---
SHIFT SUMMARY NO ACUTE DISTRESS NOTED/REPORTED, NO EVENTS DURING THIS SHIFT. NS INFUSING ORDERED. PT DENIES PAIN AND DISCOMFORT, SOB, CP/PRESSURE. BROWN DRAINING YELLOW COLOR URINE. PT IS A/O X4, ABLE TO MAKE HIS NEEDS KNOWN AND COOPERATIVE WITH CARE. BED AT THE LOWEST POSITION, CALL LIGHT W/I REACH.
[2025-03-05 03:56] VITALS: BP 119/68
[2025-03-05 06:04] LABS: Hematocrit 30.2 % (37.0-53.0); Hemoglobin 9.7 g/dL (13.5-17.5)
[2025-03-05 06:22] LABS: Albumin, Blood 2.7 g/dL (3.4-5.0); Anion Gap 9 mmol/L (3-11); Blood Urea Nitrogen 71 mg/dL (8-24); CO2, Blood 23 mmol/L (21-32); Calcium, Blood 7.9 mg/dL (8.5-10.1); Chloride, Blood 113 mmol/L (98-108); Creatinine, Blood 2.41 mg/dL (0.60-1.20); Glucose, Blood 91 mg/dL (70-99); Magnesium, Blood 2.0 mg/dL (1.6-2.4); Phosphorus, Blood 2.4 mg/dL (2.5-4.9); Potassium, Blood 5.4 mmol/L (3.5-5.5); Sodium, Blood 140 mmol/L (136-145)
[2025-03-05] MEDS ORDERED: NS 1,000 ML IV SCH (07:10)
[2025-03-05] MEDS ORDERED: Sodium Phosphate 10 MM in Dextrose 5% 250 ML IV STA (07:14)
[2025-03-05 07:34] VITALS: BP 132/66
[2025-03-05 15:18] VITALS: BP 137/65
[2025-03-05] MEDS ORDERED: Darbepoetin Alfa In Albumn Sol 40 MCG/0.4 ML SC SCH (16:00)
[2025-03-05 19:07] VITALS: BP 143/60
--- NOTE | 2025-03-05 19:48 | NUR ---
End of shift summary: Patient is alert and oriented x3 with bouts of confused conversation at times; pleasant and cooperative with care. Patient denies pain, SOB, CP, N/V/D this shift. All medications adminsitered per EMAR. Patient petersen remains patent and draining yellow urine. No acute changes this shift. Patient utilizes call light appropriately; call light within reach and bed in lowest position. Report given to lieutenant shift supervisor nurse.
--- NOTE | 2025-03-06 03:47 | NUR ---
CHEMIST HELPER SUMMARY VSS. ALERT AND ORIENTED. NS AT 50 ML/HR CONTINUOUSLY FOR KIDNEY NEEDS. LUNG SOUNDS DIMINISHED IN MOST OF HIS LOBES, BUT SATS REMAIN IN THE 90'S. BROWN DERRICK WIL. MED TELE SR IN THE 70S-80S, SITH 1ST DEG AND BBB. ASYMPTOMATIC. REPOSITOINED INTERMITTENTLY - SEE DOCUMENTATION. HOB ELEVATED. CALL LIGHT IN REACH, RAILS UP X 2 AND BED IN LOW POSITION FOR SAFETY. WILL CONTINUE TO MONITOR
[2025-03-06 04:58] VITALS: BP 122/71
[2025-03-06 05:04] LABS: Hematocrit 29.4 % (37.0-53.0); Hemoglobin 9.9 g/dL (13.5-17.5)
[2025-03-06 05:28] LABS: Albumin, Blood 2.6 g/dL (3.4-5.0); Anion Gap 10 mmol/L (3-11); Blood Urea Nitrogen 53 mg/dL (8-24); CO2, Blood 20 mmol/L (21-32); Calcium, Blood 7.9 mg/dL (8.5-10.1); Chloride, Blood 111 mmol/L (98-108); Creatinine, Blood 2.17 mg/dL (0.60-1.20); Glucose, Blood 90 mg/dL (70-99); Magnesium, Blood 1.7 mg/dL (1.6-2.4); Phosphorus, Blood 2.8 mg/dL (2.5-4.9); Potassium, Blood 5.3 mmol/L (3.5-5.5); Sodium, Blood 136 mmol/L (136-145)
[2025-03-06] MEDS ORDERED: NS 1,000 ML IV SCH (06:50)
[2025-03-06 07:51] VITALS: BP 125/67
[2025-03-06 15:30] VITALS: BP 131/80
--- NOTE | 2025-03-06 18:22 | NUR ---
SHIFT SUMMARY NO ACUTE CHANGES NOTED CONT TO AWAIT PLACEMENT
[2025-03-06 19:34] VITALS: BP 131/71
[2025-03-07 03:25] VITALS: BP 117/62
[2025-03-07 04:56] LABS: Hematocrit 28.3 % (37.0-53.0); Hemoglobin 9.3 g/dL (13.5-17.5)
[2025-03-07 05:24] LABS: Magnesium, Blood 1.4 mg/dL (1.6-2.4)
[2025-03-07 05:25] LABS: Albumin, Blood 2.5 g/dL (3.4-5.0); Anion Gap 8 mmol/L (3-11); Blood Urea Nitrogen 41 mg/dL (8-24); CO2, Blood 21 mmol/L (21-32); Calcium, Blood 7.7 mg/dL (8.5-10.1); Chloride, Blood 112 mmol/L (98-108); Creatinine, Blood 2.04 mg/dL (0.60-1.20); Glucose, Blood 88 mg/dL (70-99); Phosphorus, Blood 2.6 mg/dL (2.5-4.9); Potassium, Blood 5.2 mmol/L (3.5-5.5); Sodium, Blood 136 mmol/L (136-145)
--- NOTE | 2025-03-07 06:02 | NUR ---
LUMBER DRIVER SUMMARY PT A&OX4, VSS. COOPERATIVE W/ CARE. ABLE TO MAKE NEEDS KNOWN WELL. PT HAS BEEN ASLEEP ON AND OFF THROUGHOUT THE NIGHT. CHEST RISE/RESPIRATIONS NOTED. PG IN LELO REMAINS WNL. NS CONT INF RUNNING AT 75/HR. BROWN DRAINING CLEAR, YELLOW URINE TO GRAVITY. REMAINS PATENT, FREE OF KINKS, AND OBSTRUCTIONS. PT DID C/O PENILE TIP PAIN. POSSIBLE RUBBING OF CATHETER TUBING AGAINST URETHRAL OPENING. NO S/SX OF INFECTION OR CATHETER PROBLEMS NOTED. BED RAILS UP X 2, BED IN LOWEST POSITION, BED WHEELS LOCKED, PERSONAL BELONGINGS AND CALL LIGHT WITHIN REACH FOR SAFETY. PT [facility]WAITING [facility] PLACEMENT.
[2025-03-07] MEDS ORDERED: Magnesium Sulf 2 GM/Water 50ML 50 ML IV ONE (06:20)
[2025-03-07] MEDS ORDERED: NS 1,000 ML IV SCH (07:30)
[2025-03-07 07:44] VITALS: BP 121/69
[2025-03-07] MEDS ORDERED: Miconazole Nitrate 2% 85 GM PWD TOP SCH (10:20)
[2025-03-07] MEDS ORDERED: METO25 PO (12:55)
[2025-03-07] MEDS ORDERED: CLOP75 PO (12:56)
[2025-03-07] MEDS ORDERED: MICO100S TOP (12:57)
[2025-03-07] MEDS ORDERED: LOKELMA10 GM PO (12:58)
[2025-03-07] MEDS ORDERED: SODBIC650 PO (12:58)
[2025-03-07 12:59] LABS: CORONAVIRUS COVID-19 AG Positive (NEGATIVE)
--- NOTE | 2025-03-07 13:28 | NUR ---
COVID TEST CAME BACK POSITIVE. DR. BRYAN, [facility] PLANNING, AND INFECTION PREVENTION NOTIFIED. ISO CART IN PLACE. DR. BRYAN ORDERED TO [facility] IV AT THIS TIME.
--- NOTE | 2025-03-07 16:47 | NUR ---
PT A/Ox4, VSS. PLEASANT AND COOPERTIVE WITH CARE. ISO PRECAUTIONS IN PLACE D/T PT TESTING POSITIVE FOR COVID TODAY. BROWN HAS BEEN D/C'd, PT HAS BEEN URINATING WELL SINCE REMOVAL. PT IS A 1PA W/FWW TO THE TOILET AND IS ABLE TO MAKE NEEDS KNOWN WELL. NO IV ACCESS ORDERED. NO COMPLAINTS OF PAIN THIS SHIFT. PT HAD ONE EPISODE OF DAIRRHEA THIS MORNING AND HAS BEEN FEELING "GASSY" SINCE.
[2025-03-07 18:13] VITALS: BP 116/68
[2025-03-07 20:07] VITALS: BP 104/55
[2025-03-08 05:10] LABS: Hematocrit 30.6 % (37.0-53.0); Hemoglobin 10.1 g/dL (13.5-17.5)
[2025-03-08 05:38] LABS: Albumin, Blood 2.6 g/dL (3.4-5.0); Anion Gap 10 mmol/L (3-11); Blood Urea Nitrogen 34 mg/dL (8-24); CO2, Blood 21 mmol/L (21-32); Calcium, Blood 8.1 mg/dL (8.5-10.1); Chloride, Blood 109 mmol/L (98-108); Creatinine, Blood 2.13 mg/dL (0.60-1.20); Glucose, Blood 80 mg/dL (70-99); Magnesium, Blood 1.8 mg/dL (1.6-2.4); Phosphorus, Blood 2.8 mg/dL (2.5-4.9); Potassium, Blood 5.1 mmol/L (3.5-5.5); Sodium, Blood 135 mmol/L (136-145)
--- NOTE | 2025-03-08 05:52 | NUR ---
IT SUPPORT ANALYST SUMMARY PT A&OX4, VSS. COOPERATIVE W/ CARE. ABLE TO MAKE NEEDS KNOWN WELL. PT HAS BEEN ASLEEP FOR MOST OF THE NIGHT. CHEST RISE/RESPIRATIONS NOTED. REMAINS ON DROPLET CONTACT PRECAUTIONS FOR POSITIVE COVID TEST. NO IV IN PLACE PER ORDER. BROWN REMOVED DURING AM SHIFT. PT CONTINUES TO HAVE PENILE EDEMA, ALTHOUGH NOTED TO HAVE DECREASED SINCE AM SHIFT. PT ALSO VOICES IMPROVEMENT IN PENILE EDEMA. BED RAILS UP X 2, BED IN LOWEST POSITION, BED WHEELS LOCKED, PERSONAL BELONGINGS AND CALL LIGHT WITHIN REACH FOR SAFETY. PER PROGRESS NOTE, PT TO BE DISCHARGED ON 03/16/2025 WHEN 10 DAY COVID ISOLATION IS OVER.
[2025-03-08 06:07] VITALS: BP 103/61
--- NOTE | 2025-03-08 17:52 | NUR ---
SHIFT SUMMARY PT IS A&OX4 AND IS PLEASANT AND COOPERATIVE WITH CARE. PT IS ABLE TO MAKE NEEDS KNOWN. VSS, NOT ON O2 AT THIS TIME. PT IS IN DROPLET PRECAUTIONS D/T POSTIVE COVID TEST. PT IS A SBA ASSIST. NO ACUTE CHANGES THIS SHIFT. CALL LIGHT WITHIN REACH.
[2025-03-08 18:14] VITALS: BP 113/71
[2025-03-08 20:19] VITALS: BP 118/63
--- NOTE | 2025-03-08 21:24 | NUR ---
NOTE LOOSE STOOLS, MD NOTIFIED AND WILL ASSESS FOR POTENTIAL R/O C DIFF.
[2025-03-09 02:12] VITALS: BP 114/64
[2025-03-09 05:01] LABS: Hematocrit 31.5 % (37.0-53.0); Hemoglobin 10.3 g/dL (13.5-17.5)
[2025-03-09 05:21] LABS: Albumin, Blood 2.6 g/dL (3.4-5.0); Anion Gap 8 mmol/L (3-11); Blood Urea Nitrogen 33 mg/dL (8-24); CO2, Blood 25 mmol/L (21-32); Calcium, Blood 8.3 mg/dL (8.5-10.1); Chloride, Blood 106 mmol/L (98-108); Creatinine, Blood 2.07 mg/dL (0.60-1.20); Glucose, Blood 93 mg/dL (70-99); Magnesium, Blood 1.6 mg/dL (1.6-2.4); Phosphorus, Blood 3.0 mg/dL (2.5-4.9); Potassium, Blood 4.9 mmol/L (3.5-5.5); Sodium, Blood 134 mmol/L (136-145)
--- NOTE | 2025-03-09 05:52 | NUR ---
SLATER APPRENTICE SUMMARY PT A&OX4, VSS. COOPERATIVE W/ CARE. ABLE TO MAKE NEEDS KNOWN WELL AND APPROPRIATELY. PT HAS BEEN ASLEEP FOR MOST OF THE NIGHT. CHEST RISE/RESPIRATIONS NOTED. REMAINS ON DROPLET CONTACT PRECAUTIONS FOR POS COVID TEST. NO IV PER ORDER. CONTINUES TO HAVE TRACE PENILE EDEMA. HAS CONTINUED TO DECREASE SINCE BROWN REMOVAL YESTERDAY AM. PT DID HAVE A DIME SIZED ABRASION ON BUTTOCKS. PT STATED HE WAS "RUBBING WITH SHEETS." MEPILEX IN PLACE. REMAINS CDI. PT ALSO NOTED TO HAVE MULTIPLE LOOSE STOOLS THESE PAST FEW DAYS. PROVIDER NOTIFIED. NO FURTHER ORDERS AT THIS TIME. BED RAILS UP X 2, BED IN LOWEST POSITION, BED WHEELS LOCKED, PERSONAL BELONGINGS AND CALL LIGHT WITHIN REACH FOR SAFETY.
[2025-03-09 07:31] VITALS: BP 116/61
[2025-03-09 15:18] VITALS: BP 92/62
--- NOTE | 2025-03-09 17:21 | NUR ---
SHIFT SUMMARY NO ACUTE CHANGES, A/Ox4, ABLE TO MAKE NEEDS KNOWN AND USING CALL SYSTEM APPROPRIATELY. HEADACHE TREATED PER EMAR. IMODIUM ORDERED AND ADMINISTERED FOR LOOSE STOOL - EFFECTIVE. ENCOURAGING FLUID INTAKE. UP IN CHAIR FOR ALL MEALS. RESPIRATIONS EVEN AND UNLABORED ON RA, PT REPORTS SOB AT REST AND WITH EXERTION - SATURATION LEVELS REMAIN ABOVE 92% AT THESE TIMES. NO IV ACCESS. PT CURRENTLY RESTING IN BED WITH BED IN LOWEST POSITON AND CALL LIGHT WITHIN REACH. APPEARS COMFORTABLE AND IN NO DISTRESS.
[2025-03-09 17:54] VITALS: BP 110/57
[2025-03-09 19:46] VITALS: BP 101/57
[2025-03-10 02:03] VITALS: BP 101/61
--- NOTE | 2025-03-10 03:53 | NUR ---
SHIFT SUMMARY: PT IS IN ISOLATION FOR COVID. PT ON RM AIR AND IS AOX3-4. PT IS SBA IN ROOM. NO ACUTE CHANGES THIS SHIFT.
[2025-03-10 06:00] LABS: Ferritin, Serum 1027.0 ng/mL (26-388); Total Iron Binding Capacity 151.0 ug/dL (250-450)
[2025-03-10 07:50] LABS: Albumin, Blood 2.4 g/dL (3.4-5.0); Anion Gap 10 mmol/L (3-11); Blood Urea Nitrogen 32 mg/dL (8-24); CO2, Blood 22 mmol/L (21-32); Calcium, Blood 7.8 mg/dL (8.5-10.1); Chloride, Blood 103 mmol/L (98-108); Creatinine, Blood 2.02 mg/dL (0.60-1.20); Glucose, Blood 112 mg/dL (70-99); Magnesium, Blood 1.4 mg/dL (1.6-2.4); Phosphorus, Blood 2.7 mg/dL (2.5-4.9); Potassium, Blood 4.3 mmol/L (3.5-5.5); Sodium, Blood 131 mmol/L (136-145)
[2025-03-10 08:07] VITALS: BP 98/65
[2025-03-10] MEDS ORDERED: Magnesium Sulf 2 GM/Water 50ML 50 ML IV ONE (09:10)
[2025-03-10 16:24] VITALS: BP 95/63
[2025-03-10 19:12] VITALS: BP 103/63
[2025-03-11 02:18] VITALS: BP 100/58
[2025-03-11 04:28] LABS: Hematocrit 28.7 % (37.0-53.0); Hemoglobin 9.6 g/dL (13.5-17.5)
[2025-03-11 04:54] LABS: Albumin, Blood 2.4 g/dL (3.4-5.0); Anion Gap 10 mmol/L (3-11); Blood Urea Nitrogen 28 mg/dL (8-24); CO2, Blood 23 mmol/L (21-32); Calcium, Blood 8.1 mg/dL (8.5-10.1); Chloride, Blood 102 mmol/L (98-108); Creatinine, Blood 2.08 mg/dL (0.60-1.20); Glucose, Blood 87 mg/dL (70-99); Magnesium, Blood 1.9 mg/dL (1.6-2.4); Phosphorus, Blood 3.0 mg/dL (2.5-4.9); Potassium, Blood 4.2 mmol/L (3.5-5.5); Sodium, Blood 131 mmol/L (136-145)
[2025-03-11 08:19] VITALS: BP 97/63
--- NOTE | 2025-03-11 14:51 | NUR ---
PATIENT IN ROOM, UP FOR MEALS AND ABLE TO EXPRESS NEEDS. PATIENT HAS NO CONCERNS AND STATED HE FELT BETTER. WAITING FOR ISOLATION TIME FRAME TO SO [facility] CAN [facility]. CALL LIGHT WITHIN REACH
[2025-03-11 15:02] VITALS: BP 110/59
[2025-03-11 19:30] VITALS: BP 108/61
[2025-03-12 03:03] VITALS: BP 110/63
[2025-03-12 04:29] LABS: Hematocrit 27.9 % (37.0-53.0); Hemoglobin 9.1 g/dL (13.5-17.5)
[2025-03-12 04:46] LABS: Albumin, Blood 2.3 g/dL (3.4-5.0); Anion Gap 6 mmol/L (3-11); Blood Urea Nitrogen 29 mg/dL (8-24); CO2, Blood 27 mmol/L (21-32); Calcium, Blood 8.0 mg/dL (8.5-10.1); Chloride, Blood 105 mmol/L (98-108); Creatinine, Blood 2.00 mg/dL (0.60-1.20); Glucose, Blood 95 mg/dL (70-99); Magnesium, Blood 1.6 mg/dL (1.6-2.4); Phosphorus, Blood 3.2 mg/dL (2.5-4.9); Potassium, Blood 4.1 mmol/L (3.5-5.5); Sodium, Blood 134 mmol/L (136-145)
--- NOTE | 2025-03-12 05:37 | NUR ---
NO ACUTE CHANGES, PATIENT TO STAY FOR 5 MORE DAYS PER [facility] DUE TO COVID POSITIVE, ALERT AND ORIENTED X4, PLEASANT TO CARE, CLEARLY MAKES NEEDS KNOWN, CALL LIGHT WITH IN REACH
[2025-03-12 07:19] VITALS: BP 106/61
--- NOTE | 2025-03-12 08:31 | NUR ---
Pt sitting up in bed watching tv, a/ox4, pleasant and coopertive with care, follows commands well, denies pain, states he slept well, no needs at this time, lungs are clear in upper woods, dim in r base, clear in l base, on r/a, resp even and unlabored, denies sob, states he has an occ productive cough of white sputum, hrr, distant, murmur noted, no edema noted, ppp+1, cap refill<3 sec, vs stable, afebrile, btx4, abd flat soft nontender, voids without diff, skin has yeast rash to ivet area, maew is one person assist with walker, jesus, call light in reach.
[2025-03-12 16:33] VITALS: BP 100/58
--- NOTE | 2025-03-12 18:09 | NUR ---
pt up to the bathroom with sba, and walker, states hes feeling ok, no acute changes this shift, call light in reach.
[2025-03-12 19:47] VITALS: BP 97/55
[2025-03-13 05:33] VITALS: BP 93/56
[2025-03-13 05:37] LABS: Hematocrit 29.4 % (37.0-53.0); Hemoglobin 9.4 g/dL (13.5-17.5)
--- NOTE | 2025-03-13 05:41 | NUR ---
NO CHANGES, 2 OF 5 DAYS DONE WAITING TO BE [facility] TO [facility], CLEARLY MAKES NEEDS KNOWN, CALL LIGHT WITH IN REACH, ONE PERSON STAND BY ASSIST, CALLS FOR HELP APPRIATELY, WILL RELAY TO AM RN
[2025-03-13 06:14] LABS: Albumin, Blood 2.4 g/dL (3.4-5.0); Anion Gap 9 mmol/L (3-11); Blood Urea Nitrogen 26 mg/dL (8-24); CO2, Blood 25 mmol/L (21-32); Calcium, Blood 8.1 mg/dL (8.5-10.1); Chloride, Blood 106 mmol/L (98-108); Creatinine, Blood 1.99 mg/dL (0.60-1.20); Glucose, Blood 88 mg/dL (70-99); Magnesium, Blood 1.9 mg/dL (1.6-2.4); Phosphorus, Blood 3.3 mg/dL (2.5-4.9); Potassium, Blood 4.1 mmol/L (3.5-5.5); Sodium, Blood 136 mmol/L (136-145)
[2025-03-13 07:43] VITALS: BP 105/59
[2025-03-13] MEDS ORDERED: FERSU300 PO (15:33)
--- NOTE | 2025-03-13 16:47 | NUR ---
Pt is being discharged to home with h.h. piv removed intact, went over discharge instructions with him, he verbalized understanding, new meds faxed to [facility], waiting on son to pick him up.
--- NOTE | 2025-03-13 17:00 | NUR ---
pt son is here to take him home, he has his belongings and instructions, piv is out, left via wheelchair with aquatic centre manager and son in attendence.
== END 2025-03-13 15:15 | disposition home health service (06) | DRG 682 ==
LOC: ER 10:01 → ICUE 11:48 → MEDS 11:48 → PCU 11:48 → ICUE 14:04 → PCU 03-02 05:55 → MEDS 03-02 22:21
PROVIDERS: Internal Medicine; Internal Medicine Nephrology; Student in an Organized Health Care Education/Training Program; ADMIT Student in an Organized Health Care Education/Training Program
DX: N17.9 Acute kidney failure, unspecified (principal); G93.41 Metabolic encephalopathy; R57.1 Hypovolemic shock; U07.1 COVID-19; E87.20 Acidosis, unspecified; R65.10 Systemic inflammatory response syndrome (SIRS) of non-infectious origin without acute organ dysfunction; E72.20 Disorder of urea cycle metabolism, unspecified; E87.0 Hyperosmolality and hypernatremia; E87.1 Hypo-osmolality and hyponatremia; D63.1 Anemia in chronic kidney disease; N18.32 Chronic kidney disease, stage 3b; E66.9 Obesity, unspecified; R19.7 Diarrhea, unspecified; E87.5 Hyperkalemia; I12.9 Hypertensive chronic kidney disease with stage 1 through stage 4 chronic kidney disease, or unspecified chronic kidney disease; R13.10 Dysphagia, unspecified; E83.39 Other disorders of phosphorus metabolism; R53.1 Weakness; I95.9 Hypotension, unspecified; Z79.899 Other long term (current) drug therapy; Z79.82 Long term (current) use of aspirin; Z90.49 Acquired absence of other specified parts of digestive tract; Z68.30 Body mass index [BMI] 30.0-30.9, adult; I25.2 Old myocardial infarction; Z95.5 Presence of coronary angioplasty implant and graft; Z98.890 Other specified postprocedural states
CPT/HCPCS: 36415; 51702; 74176; 76770; 80047; 80048; 80053; 80069; 80320; 81001; 82140; 82550; 82607; 82728; 82746; 82803; 82947; 83540; 83550; 83605; 83735; 84295; 85014; 85018; 85025; 87040; 87426-QW; 87507; 87637; 92526; 92610; 93005; 93010; 94762; 96374; 96375; 97110; 97116; 97162; 97165; 97530; 97535; 99285-25; A9270; C1751; G0103; J0612; J0881; J1644; J1815; J2405; J3475; J7030; J7060; J7070